=== PATIENT | male | born 1970 | race African-American/Black ===

== ENCOUNTER 2017-10-02 09:43 | Inpatient (IN) ==
[2017-10-02] MEDS ORDERED: ONDANSETRON 4 MG/2 ML VIAL IV PRN (09:45)
[2017-10-02] MEDS ORDERED: ALBUTEROL 2.5 MG/3 ML NEB RESP TX PRN (09:45)
[2017-10-02] MEDS ORDERED: SODIUM CHLORIDE 0.45% 1,000 ML IV SCH (10:00)
[2017-10-02] MEDS ORDERED: ALBUTEROL/IPRATROPIUM 3 ML NEB RESP TX SCH (13:00)
[2017-10-02 14:42] LABS: ABG Base Excess -11.7 MMOL/L (-2.5-2.5); ABG HCO3 15.4 MMOL/L (20-26); ABG Oxygen Saturation 90.6 % (95-100); ABG PO2 91.7 MM HG (80-95); ABG TCO2 29.3 MMOL/L (23-27)
[2017-10-02 14:46] LABS: ABG PH 6.917 (7.35-7.45)
[2017-10-02] MEDS ORDERED: FAMOTIDINE 20 MG/2 ML VIAL IV SCH (15:00)
[2017-10-02] MEDS ORDERED: DEXTROSE 50% 25 GM/50 ML VIAL IV PRN (15:04)
[2017-10-02] MEDS ORDERED: FUROSEMIDE 40 MG/4 ML VIAL IV ONE (15:04)
[2017-10-02] MEDS ORDERED: GLUCAGON 1 MG VIAL IM PRN (15:04)
[2017-10-02 15:29] LABS: Apearance,Urine CLOUDY (Clear); Bacteria,Urine Moderate /HPF (Few); Bilirubin,Urine Negative (Negative); Blood, Urine Large mg/dL (Negative); Glucose,Urine (UA) Negative (Negative); Ketones,Urine Negative (Negative); Mucus,Urine Occasional /LPF (Occasional); Nitrite,Urine Negative (Negative); Protein,Urine 100 MG/DL; RBC,Urine 97 /HPF (0-4); Squamous Epithelial Cell,Urine Occasional /HPF (0-10); Urine Color Yellow (Yellow); Urine Specific Gravity 1.012 (1.001-1.035); Urine Urobilinogen < 2.0 EU/DL (0.2-1.0); WBC,Urine 15 /HPF (0-6)
[2017-10-02] MEDS ORDERED: LEVOFLOXACIN INJ 750 MG in PREMIX 1 EACH IV SCH (15:30)
[2017-10-02] MEDS: MIDAZOLAM 100 MG in SODIUM CHLORIDE 0.9% 80 ML IV SCH (15:45)
[2017-10-02 15:54] LABS: ABG Base Excess -6.5 MMOL/L (-2.5-2.5); ABG HCO3 19.2 MMOL/L (20-26); ABG Oxygen Saturation 96.3 % (95-100); ABG TCO2 23.9 MMOL/L (23-27)
[2017-10-02 15:56] LABS: ABG PCO2 81.8 MM HG (35-48); ABG PH 7.122 (7.35-7.45)
[2017-10-02 16:12] LABS: Basophils # 0.1 10*3/uL (0.0-0.2); Basophils % 0.4 % (0.0-0.8)
[2017-10-02 16:17] LABS: Hematocrit 49.9 VOL% (42.0-52.0); Hemoglobin 15.4 GM/DL (14.0-18.0); Immature Granulocytes % 5.5 %; Immature Granulocytes Absolute 0.87 #; Lymphocytes # 0.6 10*3/uL (1.4-4.0); Mean Corpuscular HGB Conc 30.9 GM/DL (32-36); Mean Corpuscular Hemoglobin 30 PG (27-34); Mean Corpuscular Volume 96.9 FL (87-102); Mean Platelet Volume 11.7 FL (9.6-12.0); Monocytes # 1.1 10*3/uL (0.11-0.8); NRBC # 0.11 10*3/uL; Neutrophils # 13.3 10*3/uL (1.4-7.4); Neutrophils % 83.1 % (38.7-73.9); Platelet Count 123 T/CUMM (130-400); Red Blood Count 5.15 MC/CUMM (3.8-5.5); Red Cell Distribution Width 14.7 % (9.3-17.3); White Blood Count 15.9 T/CUMM (4-12)
[2017-10-02 16:25] LABS: Calcium 6.9 MG/DL (8.5-10.1); Osmolality,Calculated 317.8 MOS/KG (273-304); Potassium 5.3 MMOL/L (3.5-5.1)
[2017-10-02 17:02] LABS: Band Neutrophils 2 % (0-10); Lymphocytes 5 % (20-55); Segmented Neutrophils 86 % (50-85); Total Cells Counted 100
[2017-10-02] MEDS: FAMOTIDINE 20 MG/2 ML VIAL IV SCH (17:21)
[2017-10-02] MEDS: PIPERACILLIN/TAZOBACTAM 3,375 MG in SODIUM CHLORIDE 0.9% 100 ML IV SCH (17:34)
[2017-10-02] MEDS: INSULIN REGULAR 100 UNIT/ML SUBCUT SCH (18:10)
[2017-10-02 19:39] LABS: Microalbum/Creat Ratio Random 1311.5 RATIO (0-30)
[2017-10-02] MEDS: ENOXAPARIN 30 MG/0.3 ML SYRINGE SUBCUT SCH (20:44)
[2017-10-02] MEDS ORDERED: ENOXAPARIN 40 MG/0.4 ML SYRINGE SUBCUT SCH (21:00)
[2017-10-03] MEDS: INSULIN REGULAR 100 UNIT/ML SUBCUT SCH ×5 (00:28→23:58)
[2017-10-03 03:31] LABS: Pt O2 Delivery Device Ventilator
[2017-10-03 03:34] LABS: ABG Base Excess -2.6 MMOL/L (-2.5-2.5); ABG HCO3 22.3 MMOL/L (20-26); ABG Oxygen Saturation 99.5 % (95-100); ABG PCO2 52.5 MM HG (35-48); ABG PH 7.287 (7.35-7.45); ABG TCO2 21.9 MMOL/L (23-27)
[2017-10-03] MEDS: PIPERACILLIN/TAZOBACTAM 3,375 MG in SODIUM CHLORIDE 0.9% 100 ML IV SCH ×2 (04:36→20:39)
[2017-10-03 05:38] LABS: Basophils % 0.3 % (0.0-0.8); Hematocrit 43.4 VOL% (42.0-52.0); Immature Granulocytes Absolute 0.84 #; Lymphocytes # 0.8 10*3/uL (1.4-4.0); Mean Corpuscular HGB Conc 32.3 GM/DL (32-36); Mean Corpuscular Hemoglobin 30 PG (27-34); Mean Corpuscular Volume 92.9 FL (87-102); Mean Platelet Volume 11.6 FL (9.6-12.0); Monocytes # 1.2 10*3/uL (0.11-0.8); Monocytes % 9.9 % (1.7-12.7); NRBC # 0.04 10*3/uL; Neutrophils # 9.1 10*3/uL (1.4-7.4); Neutrophils % 75.8 % (38.7-73.9); Platelet Count 115 T/CUMM (130-400); Red Blood Count 4.67 MC/CUMM (3.8-5.5); Red Cell Distribution Width 14.9 % (9.3-17.3)
[2017-10-03 06:00] LABS: Band Neutrophils 9 % (0-10); Lymphocytes 9 % (20-55); Myelocytes 3 %; Platelet Estimate Adequate; Segmented Neutrophils 74 % (50-85); Total Cells Counted 100
[2017-10-03 06:16] LABS: Albumin 1.8 G/DL (3.4-5.0); Bilirubin,Total 0.4 MG/DL (0.2-1.0); Calcium 7.2 MG/DL (8.5-10.1); Magnesium 3.1 MG/DL (1.8-2.4); Osmolality,Calculated 318.7 MOS/KG (273-304); Potassium 4.8 MMOL/L (3.5-5.1); Total Protein 4.9 G/DL (6.4-8.3)
[2017-10-03 06:29] LABS: Albumin 1.8 G/DL (3.4-5.0); Bilirubin,Direct 0.14 MG/DL (0.0-0.20); Bilirubin,Indirect 0.3 MG/DL (0.0-1.0); Bilirubin,Total 0.4 MG/DL (0.2-1.0)
[2017-10-03] MEDS: MIDAZOLAM 100 MG in SODIUM CHLORIDE 0.9% 80 ML IV SCH (10:47)
[2017-10-03 12:34] LABS: Hepatitis A Ab IgM Quant 0.12 Index; Hepatitis A Ab IgM Result Negative (Negative)
[2017-10-03 12:35] LABS: Hepatitis B Core IgM Result Negative (Negative); Hepatitis C Virus Ab Quant 0.14 Index; Hepatitis C Virus Ab Result Negative (Negative)
[2017-10-03 12:44] LABS: Hepatitis B Surface Ag Quant < 0.10 Index; Hepatitis B Surface Ag Result Negative (Negative)
[2017-10-03] MEDS: MORPHINE 2 MG/1 ML SYRINGE IV PRN (14:15)
[2017-10-03] MEDS: PROPOFOL 1,000 MG/100 ML BOTTLE IV SCH (15:21)
[2017-10-03] MEDS ORDERED: VECURONIUM 100 MG in SODIUM CHLORIDE 0.9% 100 ML IV SCH (15:30)
[2017-10-03] MEDS: CISATRACURIUM 200 MG in SODIUM CHLORIDE 0.9% 100 ML IV SCH (18:28)
[2017-10-03] MEDS ORDERED: HEPARIN 10,000 UNIT/10 ML VIAL IV SCH (19:00)
[2017-10-03] MEDS: FAMOTIDINE 20 MG/2 ML VIAL IV SCH (20:39)
[2017-10-03] MEDS: ENOXAPARIN 30 MG/0.3 ML SYRINGE SUBCUT SCH (21:22)
[2017-10-04 03:38] LABS: ABG Base Excess -2.4 MMOL/L (-2.5-2.5); ABG HCO3 22.4 MMOL/L (20-26); ABG Oxygen Saturation 98.8 % (95-100); ABG PCO2 49.4 MM HG (35-48); ABG PH 7.306 (7.35-7.45); ABG TCO2 21.4 MMOL/L (23-27); Allen Test Positive; Pt O2 Delivery Device Ventilator
[2017-10-04 05:02] LABS: Basophils # 0.2 10*3/uL (0.0-0.2); Basophils % 0.9 % (0.0-0.8); Eosinophils % 0.1 % (0.00-10.9); Hematocrit 43.2 VOL% (42.0-52.0); Immature Granulocytes % 10.7 %; Immature Granulocytes Absolute 1.81 #; Lymphocytes # 0.9 10*3/uL (1.4-4.0); Lymphocytes % 5.4 % (21.2-54.2); Mean Corpuscular HGB Conc 32.4 GM/DL (32-36); Mean Corpuscular Hemoglobin 30 PG (27-34); Mean Corpuscular Volume 93.1 FL (87-102); Mean Platelet Volume 11.7 FL (9.6-12.0); Monocytes # 1.5 10*3/uL (0.11-0.8); Monocytes % 8.8 % (1.7-12.7); NRBC # 0.07 10*3/uL; Neutrophils # 12.5 10*3/uL (1.4-7.4); Neutrophils % 74.1 % (38.7-73.9); Platelet Count 146 T/CUMM (130-400); Red Blood Count 4.64 MC/CUMM (3.8-5.5); Red Cell Distribution Width 15.1 % (9.3-17.3); White Blood Count 16.9 T/CUMM (4-12)
[2017-10-04] MEDS: PIPERACILLIN/TAZOBACTAM 3,375 MG in SODIUM CHLORIDE 0.9% 100 ML IV SCH ×2 (05:14→20:29)
[2017-10-04] MEDS: INSULIN REGULAR 100 UNIT/ML SUBCUT SCH ×3 (05:28→19:17)
[2017-10-04 05:33] LABS: Albumin 1.7 G/DL (3.4-5.0); Bilirubin,Total 0.5 MG/DL (0.2-1.0); Calcium 7.5 MG/DL (8.5-10.1); Magnesium 3.4 MG/DL (1.8-2.4); Osmolality,Calculated 320.8 MOS/KG (273-304); Potassium 4.9 MMOL/L (3.5-5.1); Prealbumin 14.8 MG/DL (20-40); Total Protein 5.4 G/DL (6.4-8.3)
[2017-10-04 05:54] LABS: Band Neutrophils 5 % (0-10); Lymphocytes 4 % (20-55); Myelocytes 3 %; Promyelocytes 2 %; Segmented Neutrophils 82 % (50-85); Total Cells Counted 100
[2017-10-04 05:55] LABS: Platelet Estimate Adequate
[2017-10-04] MEDS: ACETAMINOPHEN 325 MG TABLET PO PRN (08:15)
[2017-10-04] MEDS: PROPOFOL 1,000 MG/100 ML BOTTLE IV SCH ×2 (08:23→19:17)
[2017-10-04] MEDS ORDERED: IBUPROFEN 100 MG/5 ML UDCUP PO PRN (10:28)
[2017-10-04] MEDS: CISATRACURIUM 200 MG in SODIUM CHLORIDE 0.9% 100 ML IV SCH ×2 (11:00→19:16)
[2017-10-04] MEDS: MIDAZOLAM 100 MG in SODIUM CHLORIDE 0.9% 80 ML IV SCH ×2 (19:17→20:13)
[2017-10-04] MEDS: LEVOFLOXACIN INJ 500 MG in PREMIX 1 EACH IV SCH (20:29)
[2017-10-04] MEDS: FAMOTIDINE 20 MG/2 ML VIAL IV SCH (20:29)
[2017-10-04] MEDS: ENOXAPARIN 30 MG/0.3 ML SYRINGE SUBCUT SCH (21:14)
[2017-10-05] MEDS: INSULIN REGULAR 100 UNIT/ML SUBCUT SCH ×4 (00:33→18:06)
[2017-10-05 03:40] LABS: ABG Base Excess -5.1 MMOL/L (-2.5-2.5); ABG HCO3 20.2 MMOL/L (20-26); ABG Oxygen Saturation 97.7 % (95-100); ABG TCO2 24.5 MMOL/L (23-27); Allen Test Positive; Pt O2 Delivery Device Ventilator
[2017-10-05 03:50] LABS: ABG PH 7.143 (7.35-7.45)
[2017-10-05 03:51] LABS: ABG PCO2 79.4 MM HG (35-48)
[2017-10-05 05:37] LABS: Basophils # 0.1 10*3/uL (0.0-0.2); Basophils % 0.7 % (0.0-0.8); Eosinophils % 0.1 % (0.00-10.9); Hematocrit 43.1 VOL% (42.0-52.0); Hemoglobin 13.7 GM/DL (14.0-18.0); Immature Granulocytes % 11.3 %; Lymphocytes # 0.7 10*3/uL (1.4-4.0); Lymphocytes % 3.4 % (21.2-54.2); Mean Corpuscular HGB Conc 31.8 GM/DL (32-36); Mean Corpuscular Hemoglobin 30 PG (27-34); Mean Corpuscular Volume 95.1 FL (87-102); Mean Platelet Volume 11.3 FL (9.6-12.0); Monocytes # 1.3 10*3/uL (0.11-0.8); Monocytes % 6.8 % (1.7-12.7); NRBC # 0.04 10*3/uL; Neutrophils # 15.2 10*3/uL (1.4-7.4); Neutrophils % 77.7 % (38.7-73.9); Platelet Count 157 T/CUMM (130-400); Red Blood Count 4.53 MC/CUMM (3.8-5.5); Red Cell Distribution Width 15.7 % (9.3-17.3); White Blood Count 19.6 T/CUMM (4-12)
[2017-10-05 06:02] LABS: Calcium 7.8 MG/DL (8.5-10.1); Osmolality,Calculated 314.4 MOS/KG (273-304); Potassium 5.9 MMOL/L (3.5-5.1)
[2017-10-05 06:05] LABS: Band Neutrophils 2 % (0-10); Eosinophils 1 % (0-10); Giant Platelets Few; Hypochromasia 1+; Lymphocytes 3 % (20-55); Nucleated Red Blood Cells 1 (0-5); Platelet Estimate Normal; Segmented Neutrophils 88 % (50-85); Total Cells Counted 100
[2017-10-05 06:06] LABS: Ovalocytes Slight
[2017-10-05] MEDS: PIPERACILLIN/TAZOBACTAM 3,375 MG in SODIUM CHLORIDE 0.9% 100 ML IV SCH ×2 (06:22→16:44)
[2017-10-05] MEDS: CISATRACURIUM 200 MG in SODIUM CHLORIDE 0.9% 100 ML IV SCH ×2 (06:37→17:24)
[2017-10-05 07:38] LABS: ABG Base Excess -4.2 MMOL/L (-2.5-2.5); ABG Oxygen Saturation 99.5 % (95-100); ABG PCO2 49.4 MM HG (35-48); ABG PH 7.279 (7.35-7.45); ABG TCO2 20.4 MMOL/L (23-27)
[2017-10-05] MEDS: methylPREDNISolone SOD SUC 40 MG/1 ML VIAL IV SCH ×2 (08:30→16:18)
[2017-10-05] MEDS: PHENYLEPHRINE DRIP 40 MG/250 ML PREMIX IV SCH ×2 (08:44→16:47)
[2017-10-05] MEDS ORDERED: ALBUMIN 25% 12.5 GM in PREMIX 1 EACH IV PRN (08:45)
[2017-10-05] MEDS ORDERED: VANCOMYCIN INJ 1,000 MG in SODIUM CHLORIDE 0.9% 250 ML IV SCH (12:00)
[2017-10-05 13:41] LABS: Glomerular Basement Membrane A < 0.2 U; Myeloperoxidase Antibody < 0.2 U
[2017-10-05] MEDS ORDERED: VANCOMYCIN INJ 500 MG in SODIUM CHLORIDE 0.9% 100 ML IV PRN (13:58)
[2017-10-05] MEDS ORDERED: VANCOMYCIN INJ 1,250 MG in SODIUM CHLORIDE 0.45% 250 ML IV ONE (15:00)
[2017-10-05] MEDS: MIDAZOLAM 100 MG in SODIUM CHLORIDE 0.9% 80 ML IV SCH (15:17)
[2017-10-05] MEDS: PROPOFOL 1,000 MG/100 ML BOTTLE IV SCH (16:17)
[2017-10-05] MEDS: FAMOTIDINE 20 MG/2 ML VIAL IV SCH (16:45)
[2017-10-05] MEDS: ENOXAPARIN 30 MG/0.3 ML SYRINGE SUBCUT SCH (22:00)
[2017-10-06] MEDS: methylPREDNISolone SOD SUC 40 MG/1 ML VIAL IV SCH ×3 (00:15→16:41)
[2017-10-06] MEDS: INSULIN REGULAR 100 UNIT/ML SUBCUT SCH ×4 (00:15→18:30)
[2017-10-06 02:09] LABS: Basophils # 0.1 10*3/uL (0.0-0.2); Basophils % 0.6 % (0.0-0.8); Hematocrit 37.4 VOL% (42.0-52.0); Hemoglobin 12.3 GM/DL (14.0-18.0); Immature Granulocytes % 10.5 %; Immature Granulocytes Absolute 2.42 #; Lymphocytes # 0.4 10*3/uL (1.4-4.0); Lymphocytes % 1.7 % (21.2-54.2); Mean Corpuscular HGB Conc 32.9 GM/DL (32-36); Mean Corpuscular Hemoglobin 30 PG (27-34); Mean Corpuscular Volume 91.2 FL (87-102); Monocytes # 0.9 10*3/uL (0.11-0.8); Monocytes % 3.9 % (1.7-12.7); NRBC # 0.05 10*3/uL; Neutrophils # 19.1 10*3/uL (1.4-7.4); Neutrophils % 83.3 % (38.7-73.9); Platelet Count 186 T/CUMM (130-400); Red Cell Distribution Width 15.2 % (9.3-17.3)
[2017-10-06 02:42] LABS: Calcium 7.6 MG/DL (8.5-10.1); Osmolality,Calculated 318.2 MOS/KG (273-304); Potassium 5.4 MMOL/L (3.5-5.1)
[2017-10-06 02:55] LABS: Anisocytosis 1+; Band Neutrophils 20 % (0-10); Lymphocytes 1 % (20-55); Nucleated Red Blood Cells 1 (0-5); Poikilocytosis 1+; Segmented Neutrophils 77 % (50-85); Total Cells Counted 100
[2017-10-06 03:45] LABS: Pt O2 Delivery Device Ventilator
[2017-10-06 03:46] LABS: ABG Base Excess -4.8 MMOL/L (-2.5-2.5); ABG HCO3 22.2 MMOL/L (20-26); ABG Oxygen Saturation 98.7 % (95-100); ABG PCO2 48.9 MM HG (35-48); ABG PH 7.275 (7.35-7.45); ABG PO2 219.1 MM HG (80-95); ABG TCO2 23.7 MMOL/L (23-27)
[2017-10-06] MEDS: PIPERACILLIN/TAZOBACTAM 3,375 MG in SODIUM CHLORIDE 0.9% 100 ML IV SCH ×2 (05:09→18:00)
[2017-10-06] MEDS: PHENYLEPHRINE DRIP 40 MG/250 ML PREMIX IV SCH (10:53)
[2017-10-06] MEDS: MIDAZOLAM 100 MG in SODIUM CHLORIDE 0.9% 80 ML IV SCH (13:56)
[2017-10-06] MEDS: PROPOFOL 1,000 MG/100 ML BOTTLE IV SCH (16:24)
[2017-10-06] MEDS: LEVOFLOXACIN INJ 500 MG in PREMIX 1 EACH IV SCH (16:37)
[2017-10-06] MEDS: FAMOTIDINE 20 MG/2 ML VIAL IV SCH (16:43)
[2017-10-06] MEDS: INSULIN NPH 100 UNIT/ML SUBCUT SCH (16:43)
[2017-10-06] MEDS: ENOXAPARIN 30 MG/0.3 ML SYRINGE SUBCUT SCH (20:27)
[2017-10-06] MEDS: CISATRACURIUM 200 MG in SODIUM CHLORIDE 0.9% 100 ML IV SCH (21:17)
[2017-10-07] MEDS: INSULIN REGULAR 100 UNIT/ML SUBCUT SCH ×5 (00:05→23:34)
[2017-10-07] MEDS: methylPREDNISolone SOD SUC 40 MG/1 ML VIAL IV SCH ×4 (00:06→23:33)
[2017-10-07 03:22] LABS: Basophils # 0.1 10*3/uL (0.0-0.2); Basophils % 0.3 % (0.0-0.8); Hematocrit 39.6 VOL% (42.0-52.0); Hemoglobin 12.7 GM/DL (14.0-18.0); Immature Granulocytes % 5.5 %; Immature Granulocytes Absolute 1.51 #; Lymphocytes # 0.5 10*3/uL (1.4-4.0); Lymphocytes % 1.7 % (21.2-54.2); Mean Corpuscular HGB Conc 32.1 GM/DL (32-36); Mean Corpuscular Hemoglobin 30 PG (27-34); Mean Corpuscular Volume 92.5 FL (87-102); Mean Platelet Volume 11.7 FL (9.6-12.0); Monocytes # 1.4 10*3/uL (0.11-0.8); Monocytes % 5.1 % (1.7-12.7); NRBC # 0.07 10*3/uL; Neutrophils # 24.2 10*3/uL (1.4-7.4); Neutrophils % 87.4 % (38.7-73.9); Platelet Count 255 T/CUMM (130-400); Red Blood Count 4.28 MC/CUMM (3.8-5.5); Red Cell Distribution Width 14.5 % (9.3-17.3); White Blood Count 27.6 T/CUMM (4-12)
[2017-10-07 03:51] LABS: Calcium 7.8 MG/DL (8.5-10.1); Osmolality,Calculated 341.7 MOS/KG (273-304); Potassium 5.5 MMOL/L (3.5-5.1)
[2017-10-07 04:05] LABS: ABG Base Excess -6.7 MMOL/L (-2.5-2.5); ABG Oxygen Saturation 99.2 % (95-100); ABG PCO2 43.5 MM HG (35-48); ABG PH 7.273 (7.35-7.45); ABG TCO2 17.9 MMOL/L (23-27)
[2017-10-07 05:14] LABS: Band Neutrophils 3 % (0-10); Lymphocytes 1 % (20-55); Metamyelocytes 3 %; Segmented Neutrophils 86 % (50-85); Total Cells Counted 100
[2017-10-07 05:15] LABS: Hypochromasia 1+
[2017-10-07] MEDS: PIPERACILLIN/TAZOBACTAM 3,375 MG in SODIUM CHLORIDE 0.9% 100 ML IV SCH ×2 (05:18→18:00)
[2017-10-07] MEDS: MIDAZOLAM 100 MG in SODIUM CHLORIDE 0.9% 80 ML IV SCH ×2 (07:44→10:33)
[2017-10-07] MEDS: INSULIN NPH 100 UNIT/ML SUBCUT SCH ×2 (07:45→16:47)
[2017-10-07] MEDS ORDERED: VANCOMYCIN INJ 500 MG in SODIUM CHLORIDE 0.9% 100 ML IV ONE (15:00)
[2017-10-07] MEDS: PHENYLEPHRINE DRIP 40 MG/250 ML PREMIX IV SCH (15:49)
[2017-10-07] MEDS: PROPOFOL 1,000 MG/100 ML BOTTLE IV SCH ×2 (15:50→22:25)
[2017-10-07] MEDS: FAMOTIDINE 20 MG/2 ML VIAL IV SCH (16:48)
[2017-10-07] MEDS: CISATRACURIUM 200 MG in SODIUM CHLORIDE 0.9% 100 ML IV SCH (20:11)
[2017-10-07] MEDS: ENOXAPARIN 30 MG/0.3 ML SYRINGE SUBCUT SCH (21:44)
[2017-10-08 04:37] LABS: Basophils # 0.1 10*3/uL (0.0-0.2); Basophils % 0.3 % (0.0-0.8); Hematocrit 38.6 VOL% (42.0-52.0); Hemoglobin 13.1 GM/DL (14.0-18.0); Immature Granulocytes % 4.1 %; Immature Granulocytes Absolute 1.06 #; Lymphocytes # 0.4 10*3/uL (1.4-4.0); Lymphocytes % 1.6 % (21.2-54.2); Mean Corpuscular HGB Conc 33.9 GM/DL (32-36); Mean Corpuscular Hemoglobin 30 PG (27-34); Mean Corpuscular Volume 87.5 FL (87-102); Mean Platelet Volume 11.5 FL (9.6-12.0); Monocytes # 1.7 10*3/uL (0.11-0.8); Monocytes % 6.5 % (1.7-12.7); NRBC # 0.09 10*3/uL; Neutrophils # 22.8 10*3/uL (1.4-7.4); Neutrophils % 87.5 % (38.7-73.9); Platelet Count 265 T/CUMM (130-400); Red Blood Count 4.41 MC/CUMM (3.8-5.5); Red Cell Distribution Width 13.8 % (9.3-17.3); White Blood Count 26.1 T/CUMM (4-12)
[2017-10-08 04:49] LABS: ABG Base Excess -2.2 MMOL/L (-2.5-2.5); ABG HCO3 22.3 MMOL/L (20-26); ABG Oxygen Saturation 99.1 % (95-100); ABG PCO2 37.4 MM HG (35-48); ABG PH 7.393 (7.35-7.45); ABG PO2 235.7 MM HG (80-95); ABG TCO2 23.4 MMOL/L (23-27)
[2017-10-08] MEDS: PIPERACILLIN/TAZOBACTAM 3,375 MG in SODIUM CHLORIDE 0.9% 100 ML IV SCH ×2 (04:52→17:28)
[2017-10-08 05:18] LABS: Lymphocytes 3 % (20-55); Nucleated Red Blood Cells 1 (0-5); Segmented Neutrophils 91 % (50-85); Total Cells Counted 100
[2017-10-08 05:19] LABS: Hypochromasia 1+; Microcytosis 1+
[2017-10-08 05:20] LABS: Calcium 7.8 MG/DL (8.5-10.1); Osmolality,Calculated 343.5 MOS/KG (273-304); Potassium 4.8 MMOL/L (3.5-5.1)
[2017-10-08] MEDS ORDERED: fentaNYL 100 MCG/2 ML VIAL IV ONE (05:25)
[2017-10-08] MEDS: INSULIN REGULAR 100 UNIT/ML SUBCUT SCH ×4 (06:39→23:56)
[2017-10-08] MEDS: methylPREDNISolone SOD SUC 40 MG/1 ML VIAL IV SCH ×3 (08:57→23:55)
[2017-10-08] MEDS: PHENYLEPHRINE DRIP 40 MG/250 ML PREMIX IV SCH (08:59)
[2017-10-08] MEDS: INSULIN NPH 100 UNIT/ML SUBCUT SCH ×2 (08:59→16:08)
[2017-10-08] MEDS: MIDAZOLAM 100 MG in SODIUM CHLORIDE 0.9% 80 ML IV SCH (09:04)
[2017-10-08] MEDS: PROPOFOL 1,000 MG/100 ML BOTTLE IV SCH ×2 (14:00→19:30)
[2017-10-08] MEDS ORDERED: SUCCINYLCHOLINE 200 MG/10 ML VIAL IV ONE (14:15)
[2017-10-08] MEDS ORDERED: SUCCINYLCHOLINE 200 MG/10 ML VIAL ONE (14:22)
[2017-10-08] MEDS: LEVOFLOXACIN INJ 500 MG in PREMIX 1 EACH IV SCH (16:08)
[2017-10-08] MEDS: CISATRACURIUM 200 MG in SODIUM CHLORIDE 0.9% 100 ML IV SCH (17:28)
[2017-10-08] MEDS: PANTOPRAZOLE 40 MG VIAL IV SCH (21:13)
[2017-10-08] MEDS: ENOXAPARIN 30 MG/0.3 ML SYRINGE SUBCUT SCH (21:16)
[2017-10-09 03:32] LABS: ABG Base Excess -1.8 MMOL/L (-2.5-2.5); ABG Oxygen Saturation 99.4 % (95-100); ABG PCO2 40.1 MM HG (35-48); ABG PH 7.372 (7.35-7.45); ABG TCO2 20.2 MMOL/L (23-27); Allen Test Positive; Pt O2 Delivery Device Ventilator
[2017-10-09 03:39] LABS: Basophils # 0.1 10*3/uL (0.0-0.2); Basophils % 0.2 % (0.0-0.8); Hematocrit 38.8 VOL% (42.0-52.0); Hemoglobin 13.1 GM/DL (14.0-18.0); Immature Granulocytes % 2.9 %; Immature Granulocytes Absolute 0.71 #; Lymphocytes # 0.5 10*3/uL (1.4-4.0); Lymphocytes % 1.9 % (21.2-54.2); Mean Corpuscular HGB Conc 33.8 GM/DL (32-36); Mean Corpuscular Hemoglobin 30 PG (27-34); Mean Platelet Volume 11.3 FL (9.6-12.0); Monocytes # 2.2 10*3/uL (0.11-0.8); Monocytes % 8.8 % (1.7-12.7); NRBC # 0.04 10*3/uL; Neutrophils # 21.4 10*3/uL (1.4-7.4); Neutrophils % 86.2 % (38.7-73.9); Platelet Count 293 T/CUMM (130-400); Red Blood Count 4.41 MC/CUMM (3.8-5.5); Red Cell Distribution Width 13.6 % (9.3-17.3); White Blood Count 24.8 T/CUMM (4-12)
[2017-10-09 04:18] LABS: Calcium 7.8 MG/DL (8.5-10.1); Osmolality,Calculated 365.3 MOS/KG (273-304); Potassium 4.9 MMOL/L (3.5-5.1)
[2017-10-09 04:54] LABS: Hypochromasia 1+; Lymphocytes 3 % (20-55); Microcytosis Slight; Nucleated Red Blood Cells 1 (0-5); Segmented Neutrophils 88 % (50-85); Total Cells Counted 100
[2017-10-09] MEDS: PIPERACILLIN/TAZOBACTAM 3,375 MG in SODIUM CHLORIDE 0.9% 100 ML IV SCH ×2 (04:56→16:50)
[2017-10-09] MEDS: PROPOFOL 1,000 MG/100 ML BOTTLE IV SCH ×3 (05:30→19:54)
[2017-10-09] MEDS: INSULIN REGULAR 100 UNIT/ML SUBCUT SCH ×3 (06:15→19:19)
[2017-10-09] MEDS: INSULIN NPH 100 UNIT/ML SUBCUT SCH ×2 (07:34→16:50)
[2017-10-09] MEDS: PHENYLEPHRINE DRIP 40 MG/250 ML PREMIX IV SCH (08:51)
[2017-10-09] MEDS: PANTOPRAZOLE 40 MG VIAL IV SCH ×2 (09:07→20:27)
[2017-10-09] MEDS: methylPREDNISolone SOD SUC 40 MG/1 ML VIAL IV SCH ×2 (09:16→20:27)
[2017-10-09] MEDS: MIDAZOLAM 100 MG in SODIUM CHLORIDE 0.9% 80 ML IV SCH (09:17)
[2017-10-09] MEDS: MORPHINE 2 MG/1 ML SYRINGE IV PRN (10:54)
[2017-10-09] MEDS: CISATRACURIUM 200 MG in SODIUM CHLORIDE 0.9% 100 ML IV SCH (16:37)
[2017-10-09] MEDS ORDERED: VANCOMYCIN INJ 500 MG in SODIUM CHLORIDE 0.9% 100 ML IV ONE (20:00)
[2017-10-09] MEDS: ENOXAPARIN 30 MG/0.3 ML SYRINGE SUBCUT SCH (20:26)
[2017-10-10] MEDS: INSULIN REGULAR 100 UNIT/ML SUBCUT SCH ×4 (00:11→18:00)
[2017-10-10 02:29] LABS: Pt O2 Delivery Device Ventilator
[2017-10-10 02:32] LABS: ABG Oxygen Saturation 98.7 % (95-100); ABG PCO2 39.3 MM HG (35-48); ABG PH 7.359 (7.35-7.45); ABG TCO2 19.3 MMOL/L (23-27)
[2017-10-10] MEDS: PROPOFOL 1,000 MG/100 ML BOTTLE IV SCH ×4 (02:40→20:30)
[2017-10-10 04:55] LABS: Basophils % 0.2 % (0.0-0.8); Hematocrit 39.9 VOL% (42.0-52.0); Hemoglobin 13.2 GM/DL (14.0-18.0); Immature Granulocytes % 2.3 %; Immature Granulocytes Absolute 0.53 #; Lymphocytes # 0.6 10*3/uL (1.4-4.0); Lymphocytes % 2.7 % (21.2-54.2); Mean Corpuscular HGB Conc 33.1 GM/DL (32-36); Mean Corpuscular Hemoglobin 30 PG (27-34); Mean Corpuscular Volume 89.1 FL (87-102); Mean Platelet Volume 11.4 FL (9.6-12.0); Monocytes # 2.1 10*3/uL (0.11-0.8); Monocytes % 9.3 % (1.7-12.7); NRBC # 0.02 10*3/uL; Neutrophils # 19.4 10*3/uL (1.4-7.4); Neutrophils % 85.5 % (38.7-73.9); Platelet Count 285 T/CUMM (130-400); Red Blood Count 4.48 MC/CUMM (3.8-5.5); Red Cell Distribution Width 13.5 % (9.3-17.3); White Blood Count 22.6 T/CUMM (4-12)
[2017-10-10] MEDS: PIPERACILLIN/TAZOBACTAM 3,375 MG in SODIUM CHLORIDE 0.9% 100 ML IV SCH ×2 (05:02→17:31)
[2017-10-10 05:25] LABS: Band Neutrophils 6 % (0-10); Lymphocytes 1 % (20-55); Segmented Neutrophils 87 % (50-85); Total Cells Counted 100
[2017-10-10 05:29] LABS: Calcium 8.2 MG/DL (8.5-10.1); Osmolality,Calculated 349.3 MOS/KG (273-304); Potassium 5.3 MMOL/L (3.5-5.1)
[2017-10-10 05:43] LABS: Magnesium 3.9 MG/DL (1.8-2.4); Prealbumin 28.2 MG/DL (20-40)
[2017-10-10] MEDS: INSULIN NPH 100 UNIT/ML SUBCUT SCH ×2 (08:16→17:05)
[2017-10-10] MEDS: PHENYLEPHRINE DRIP 40 MG/250 ML PREMIX IV SCH (08:40)
[2017-10-10] MEDS: methylPREDNISolone SOD SUC 40 MG/1 ML VIAL IV SCH ×2 (09:00→20:23)
[2017-10-10] MEDS: PANTOPRAZOLE 40 MG VIAL IV SCH ×2 (09:00→20:20)
[2017-10-10] MEDS: CISATRACURIUM 200 MG in SODIUM CHLORIDE 0.9% 100 ML IV SCH (17:31)
[2017-10-10] MEDS: LEVOFLOXACIN INJ 500 MG in PREMIX 1 EACH IV SCH (17:31)
[2017-10-10] MEDS: METOCLOPRAMIDE 10 MG/2 ML VIAL IV SCH (18:00)
[2017-10-10] MEDS: ENOXAPARIN 30 MG/0.3 ML SYRINGE SUBCUT SCH (20:21)
[2017-10-10] MEDS: ACETAMINOPHEN 325 MG TABLET PO PRN (20:28)
[2017-10-11] MEDS: METOCLOPRAMIDE 10 MG/2 ML VIAL IV SCH ×2 (02:04→06:30)
[2017-10-11] MEDS: INSULIN REGULAR 100 UNIT/ML SUBCUT SCH ×4 (02:09→19:27)
[2017-10-11] MEDS: PROPOFOL 1,000 MG/100 ML BOTTLE IV SCH (04:30)
[2017-10-11 05:04] LABS: Basophils # 0.1 10*3/uL (0.0-0.2); Basophils % 0.2 % (0.0-0.8); Hematocrit 41.9 VOL% (42.0-52.0); Hemoglobin 14.2 GM/DL (14.0-18.0); Immature Granulocytes % 2.1 %; Immature Granulocytes Absolute 0.53 #; Lymphocytes # 0.6 10*3/uL (1.4-4.0); Lymphocytes % 2.5 % (21.2-54.2); Mean Corpuscular HGB Conc 33.9 GM/DL (32-36); Mean Corpuscular Hemoglobin 30 PG (27-34); Mean Corpuscular Volume 89.3 FL (87-102); Mean Platelet Volume 11.4 FL (9.6-12.0); Monocytes # 2.6 10*3/uL (0.11-0.8); Monocytes % 10.2 % (1.7-12.7); Neutrophils # 21.5 10*3/uL (1.4-7.4); Platelet Count 354 T/CUMM (130-400); Red Blood Count 4.69 MC/CUMM (3.8-5.5); Red Cell Distribution Width 13.7 % (9.3-17.3); White Blood Count 25.3 T/CUMM (4-12)
[2017-10-11] MEDS: PIPERACILLIN/TAZOBACTAM 3,375 MG in SODIUM CHLORIDE 0.9% 100 ML IV SCH ×2 (05:23→16:09)
[2017-10-11] MEDS: ACETAMINOPHEN 325 MG TABLET PO PRN (05:23)
[2017-10-11 05:40] LABS: Albumin 2.3 G/DL (3.4-5.0); Bilirubin,Total 0.4 MG/DL (0.2-1.0); Calcium 7.4 MG/DL (8.5-10.1); Potassium 5.8 MMOL/L (3.5-5.1); Total Protein 6.4 G/DL (6.4-8.3)
[2017-10-11 05:49] LABS: Lymphocytes 2 % (20-55); Segmented Neutrophils 90 % (50-85); Total Cells Counted 100
[2017-10-11 05:50] LABS: Platelet Estimate Normal
[2017-10-11 05:51] LABS: Tear Drop Cells Slight
[2017-10-11] MEDS: PANTOPRAZOLE 40 MG VIAL IV SCH ×2 (08:55→21:37)
[2017-10-11] MEDS: methylPREDNISolone SOD SUC 40 MG/1 ML VIAL IV SCH (08:55)
[2017-10-11] MEDS: INSULIN NPH 100 UNIT/ML SUBCUT SCH ×2 (08:55→16:09)
[2017-10-11] MEDS: PHENYLEPHRINE DRIP 40 MG/250 ML PREMIX IV SCH (08:55)
[2017-10-11] MEDS ORDERED: VANCOMYCIN INJ 500 MG in SODIUM CHLORIDE 0.9% 100 ML IV ONE (21:00)
[2017-10-11] MEDS ORDERED: methylPREDNISolone SOD SUC 40 MG/1 ML VIAL IV SCH (21:00)
[2017-10-11] MEDS: ENOXAPARIN 30 MG/0.3 ML SYRINGE SUBCUT SCH (21:37)
[2017-10-12] MEDS: INSULIN REGULAR 100 UNIT/ML SUBCUT SCH ×4 (00:16→18:21)
[2017-10-12] MEDS: PIPERACILLIN/TAZOBACTAM 3,375 MG in SODIUM CHLORIDE 0.9% 100 ML IV SCH (04:21)
[2017-10-12 04:44] LABS: Basophils % 0.1 % (0.0-0.8); Hematocrit 41.9 VOL% (42.0-52.0); Hemoglobin 13.7 GM/DL (14.0-18.0); Immature Granulocytes % 1.7 %; Immature Granulocytes Absolute 0.51 #; Lymphocytes # 0.7 10*3/uL (1.4-4.0); Lymphocytes % 2.4 % (21.2-54.2); Mean Corpuscular HGB Conc 32.7 GM/DL (32-36); Mean Corpuscular Hemoglobin 30 PG (27-34); Mean Corpuscular Volume 90.1 FL (87-102); Mean Platelet Volume 11.1 FL (9.6-12.0); Monocytes # 2.7 10*3/uL (0.11-0.8); Monocytes % 8.8 % (1.7-12.7); Neutrophils # 26.4 10*3/uL (1.4-7.4); Platelet Count 266 T/CUMM (130-400); Red Blood Count 4.65 MC/CUMM (3.8-5.5); Red Cell Distribution Width 13.4 % (9.3-17.3); White Blood Count 30.4 T/CUMM (4-12)
[2017-10-12 05:14] LABS: Calcium 8.2 MG/DL (8.5-10.1); Potassium 4.5 MMOL/L (3.5-5.1)
[2017-10-12 06:03] LABS: Hypochromasia 1+; Lymphocytes 5 % (20-55); Metamyelocytes 1 %; Segmented Neutrophils 85 % (50-85); Total Cells Counted 100
[2017-10-12 06:04] LABS: Microcytosis Slight; Platelet Estimate Normal
[2017-10-12] MEDS ORDERED: methylPREDNISolone SOD SUC 40 MG/1 ML VIAL IV SCH (09:00)
[2017-10-12] MEDS: PANTOPRAZOLE 40 MG VIAL IV SCH ×2 (09:29→20:20)
[2017-10-12] MEDS: INSULIN NPH 100 UNIT/ML SUBCUT SCH ×2 (09:30→18:21)
[2017-10-12 10:37] LABS: Apearance,Urine CLOUDY (Clear); Bacteria,Urine Occasional /HPF (Few); Bilirubin,Urine Negative (Negative); Blood, Urine Large mg/dL (Negative); Glucose,Urine (UA) 50 mg/dL (Negative); Ketones,Urine Negative (Negative); Nitrite,Urine Negative (Negative); Protein,Urine Negative; RBC,Urine 193 /HPF (0-4); Uric Acid Crystals,Urine Occasional /HPF (<1); Urine Color Yellow (Yellow); Urine Specific Gravity 1.012 (1.001-1.035); Urine Urobilinogen < 2.0 EU/DL (0.2-1.0); WBC,Urine 75 /HPF (0-6)
[2017-10-12] MEDS: cefTRIAXone 2,000 MG in SYRINGE 1 EACH IV SCH (17:10)
[2017-10-12] MEDS: METOPROLOL TARTRATE 25 MG TABLET PO SCH ×2 (17:11→20:20)
[2017-10-12] MEDS: ENOXAPARIN 30 MG/0.3 ML SYRINGE SUBCUT SCH (20:20)
[2017-10-13 00:45] LABS: ABG Base Excess -1.9 MMOL/L (-2.5-2.5); ABG HCO3 21.3 MMOL/L (20-26); ABG Oxygen Saturation 96.7 % (95-100); ABG PCO2 32.1 MM HG (35-48); ABG PH 7.439 (7.35-7.45); ABG TCO2 22.2 MMOL/L (23-27)
[2017-10-13] MEDS: INSULIN REGULAR 100 UNIT/ML SUBCUT SCH ×5 (00:55→23:48)
[2017-10-13] MEDS: cefTRIAXone 2,000 MG in SYRINGE 1 EACH IV SCH ×2 (03:22→15:41)
[2017-10-13 04:17] LABS: Basophils # 0.1 10*3/uL (0.0-0.2); Basophils % 0.2 % (0.0-0.8); Eosinophils % 0.1 % (0.00-10.9); Hematocrit 42.4 VOL% (42.0-52.0); Hemoglobin 14.1 GM/DL (14.0-18.0); Immature Granulocytes % 1.3 %; Lymphocytes # 0.8 10*3/uL (1.4-4.0); Lymphocytes % 2.6 % (21.2-54.2); Mean Corpuscular HGB Conc 33.3 GM/DL (32-36); Mean Corpuscular Hemoglobin 30 PG (27-34); Mean Corpuscular Volume 88.9 FL (87-102); Mean Platelet Volume 11.5 FL (9.6-12.0); Monocytes # 3.4 10*3/uL (0.11-0.8); Monocytes % 10.5 % (1.7-12.7); Neutrophils # 27.2 10*3/uL (1.4-7.4); Neutrophils % 85.3 % (38.7-73.9); Platelet Count 286 T/CUMM (130-400); Red Blood Count 4.77 MC/CUMM (3.8-5.5); Red Cell Distribution Width 13.4 % (9.3-17.3); White Blood Count 31.9 T/CUMM (4-12)
[2017-10-13 04:36] LABS: ABG Base Excess -0.5 MMOL/L (-2.5-2.5); ABG Oxygen Saturation 96.9 % (95-100); ABG PCO2 31.7 MM HG (35-48); ABG PH 7.457 (7.35-7.45); ABG PO2 91.5 MM HG (80-95)
[2017-10-13 04:55] LABS: Calcium 7.8 MG/DL (8.5-10.1); Osmolality,Calculated 363.1 MOS/KG (273-304); Potassium 4.6 MMOL/L (3.5-5.1)
[2017-10-13 05:05] LABS: Giant Platelets Few; Hypochromasia 1+; Lymphocytes 3 % (20-55); Platelet Estimate Adequate; Segmented Neutrophils 89 % (50-85); Total Cells Counted 100
[2017-10-13 05:06] LABS: Microcytosis Slight
[2017-10-13] MEDS ORDERED: METOPROLOL TARTRATE 25 MG TABLET PO ONE (06:40)
[2017-10-13] MEDS: INSULIN NPH 100 UNIT/ML SUBCUT SCH ×2 (08:01→17:18)
[2017-10-13] MEDS: METOPROLOL TARTRATE 25 MG TABLET PO SCH ×2 (09:23→20:09)
[2017-10-13] MEDS: PANTOPRAZOLE 40 MG VIAL IV SCH ×2 (09:23→20:10)
[2017-10-13] MEDS ORDERED: PHENYLEPHRINE DRIP 40 MG/250 ML PREMIX IV ONE (14:42)
[2017-10-13 15:25] LABS: ABG Base Excess -5.6 MMOL/L (-2.5-2.5); ABG HCO3 19.8 MMOL/L (20-26); ABG Oxygen Saturation 94.6 % (95-100); ABG PCO2 25.1 MM HG (35-48); ABG PH 7.431 (7.35-7.45); ABG PO2 76.7 MM HG (80-95)
[2017-10-13] MEDS: PHENYLEPHRINE DRIP 40 MG/250 ML PREMIX IV SCH ×3 (15:31→21:00)
[2017-10-13] MEDS: ACETAMINOPHEN 325 MG TABLET PO PRN (19:12)
[2017-10-13] MEDS: ENOXAPARIN 30 MG/0.3 ML SYRINGE SUBCUT SCH (20:10)
[2017-10-14] MEDS: cefTRIAXone 2,000 MG in SYRINGE 1 EACH IV SCH ×2 (03:30→15:03)
[2017-10-14] MEDS: PHENYLEPHRINE DRIP 40 MG/250 ML PREMIX IV SCH (03:31)
[2017-10-14] MEDS: ACETAMINOPHEN 325 MG TABLET PO PRN (05:14)
[2017-10-14 05:29] LABS: ABG Base Excess -6.4 MMOL/L (-2.5-2.5); ABG HCO3 19.1 MMOL/L (20-26); ABG Oxygen Saturation 92.6 % (95-100); ABG PCO2 37.1 MM HG (35-48); ABG PO2 74.5 MM HG (80-95); ABG TCO2 16.7 MMOL/L (23-27); Allen Test Positive
[2017-10-14] MEDS ORDERED: NOREPINEPHRINE 4 MG/4 ML VIAL IV ONE (06:07)
[2017-10-14] MEDS ORDERED: SODIUM CHLORIDE 0.9% 250 ML IV ONE (06:18)
[2017-10-14] MEDS: INSULIN REGULAR 100 UNIT/ML SUBCUT SCH ×4 (06:48→23:55)
[2017-10-14] MEDS: NOREPINEPHRINE 8 MG in SODIUM CHLORIDE 0.9% 242 ML IV SCH ×2 (06:51→15:39)
[2017-10-14 07:46] LABS: Basophils # 0.1 10*3/uL (0.0-0.2); Basophils % 0.2 % (0.0-0.8); Hematocrit 46.2 VOL% (42.0-52.0); Hemoglobin 14.3 GM/DL (14.0-18.0); Immature Granulocytes % 3.3 %; Immature Granulocytes Absolute 1.21 #; Lymphocytes # 0.5 10*3/uL (1.4-4.0); Lymphocytes % 1.4 % (21.2-54.2); Mean Corpuscular Hemoglobin 30 PG (27-34); Mean Corpuscular Volume 97.1 FL (87-102); Mean Platelet Volume 12.3 FL (9.6-12.0); Monocytes # 2.4 10*3/uL (0.11-0.8); Monocytes % 6.4 % (1.7-12.7); Neutrophils # 32.6 10*3/uL (1.4-7.4); Neutrophils % 88.7 % (38.7-73.9); Platelet Count 265 T/CUMM (130-400); Red Blood Count 4.76 MC/CUMM (3.8-5.5); Red Cell Distribution Width 13.6 % (9.3-17.3); White Blood Count 36.8 T/CUMM (4-12)
[2017-10-14] MEDS: PHENYLEPHRINE INJ 160 MG in SODIUM CHLORIDE 0.9% 234 ML IV SCH ×2 (08:02→15:03)
[2017-10-14] MEDS: INSULIN NPH 100 UNIT/ML SUBCUT SCH ×2 (08:13→18:07)
[2017-10-14 08:16] LABS: Band Neutrophils 2 % (0-10); Hypochromasia 1+; Platelet Estimate Adequate; Segmented Neutrophils 93 % (50-85); Total Cells Counted 100
[2017-10-14 08:19] LABS: Alanine Aminotransferase 926 U/L (16-61); Albumin 2.2 G/DL (3.4-5.0); Alkaline Phosphatase 72 U/L (45-117); Aspartate Amino Transferase 1459 U/L (0-37); Bilirubin,Total < 0.39 MG/DL (0.2-1.0); Blood Urea Nitrogen 157 MG/DL (7-18); Calcium 7.6 MG/DL (8.5-10.1); Glucose 371 MG/DL (74-106); Sodium 143 MMOL/L (136-145); Total Protein 6.3 G/DL (6.4-8.3)
[2017-10-14 08:26] LABS: Potassium 6.7 MMOL/L (3.5-5.1)
[2017-10-14] MEDS: PANTOPRAZOLE 40 MG VIAL IV SCH ×2 (09:01→20:14)
[2017-10-14] MEDS: METOPROLOL TARTRATE 25 MG TABLET PO SCH ×2 (10:17→20:13)
[2017-10-14] MEDS ORDERED: VANCOMYCIN INJ 750 MG in SODIUM CHLORIDE 0.45% 250 ML IV ONE (13:00)
[2017-10-14] MEDS: ENOXAPARIN 30 MG/0.3 ML SYRINGE SUBCUT SCH (20:14)
[2017-10-15] MEDS: NOREPINEPHRINE 8 MG in SODIUM CHLORIDE 0.9% 242 ML IV SCH ×2 (00:01→08:13)
[2017-10-15] MEDS: PHENYLEPHRINE INJ 160 MG in SODIUM CHLORIDE 0.9% 234 ML IV SCH (00:02)
[2017-10-15] MEDS: ACETAMINOPHEN 325 MG TABLET PO PRN (00:34)
[2017-10-15] MEDS: cefTRIAXone 2,000 MG in SYRINGE 1 EACH IV SCH (03:56)
[2017-10-15] MEDS: INSULIN REGULAR 100 UNIT/ML SUBCUT SCH (06:00)
[2017-10-15 07:59] VITALS: BP 0/0
== END 2017-10-15 07:15 | disposition expired | DRG 870 ==
LOC: N.ICU 14:29 → SUATTDRO 14:29 → SUPCPDRO 14:29
PROVIDERS: ADMIT Hospitalist; ATTEND Internal Medicine